=== PATIENT | male | born 1955 | race Two or more races ===

== ENCOUNTER 2020-05-19 07:00 | Day surgery (SDC) | payer OTHER ==
[~2020-05-19 07:00] MED LIST: RESTORIL15 M1 PO
[2020-05-19] MEDS ORDERED: MIRALAX17 GM PO (11:13)
[2020-05-19] MEDS ORDERED: CODE1TAB37 PO (11:13)
[2020-05-19] MEDS ORDERED: NEURONTIN300 MG PO (11:13)
== END 2020-05-19 18:45 | disposition home or self-care (01) ==
LOC: CIR.AMB 07:00 → ADM 07:15 → CIR.AMB 07:15
PROVIDERS: ATTEND Surgery
DX: K40.90 Unilateral inguinal hernia, without obstruction or gangrene, not specified as recurrent (principal); D17.6 Benign lipomatous neoplasm of spermatic cord

== ENCOUNTER 2021-12-25 05:50 | Day surgery (SDC) | payer OTHER ==
[~2021-12-25 05:50] MED LIST changes: +CODE1TAB37 PO; +MIRALAX17 GM PO; +NEURONTIN300 MG PO
== END 2021-12-25 11:35 | disposition home or self-care (01) ==
LOC: AMB-ENDOS 05:50
PROVIDERS: ATTEND Surgery
DX: K57.30 Diverticulosis of large intestine without perforation or abscess without bleeding (principal); K63.5 Polyp of colon